=== PATIENT | female | born 1950 ===

== ENCOUNTER → 2022-02-28 08:00 | Outpatient (CLI) | payer OTHER ==
[~2022-02-28 08:00] MED LIST: LIPITOR PO; VASOTEC PO
== END | disposition home or self-care (01) ==
LOC: LAB 08:00 → ADM 09:15 → CIR.AMB 03-05 08:30 → EDSTATUS 03-05 09:15 → CIR.AMB 03-05 09:15
PROVIDERS: ATTEND Obstetrics & Gynecology Gynecology
DX: Z20.828 Contact with and (suspected) exposure to other viral communicable diseases (principal)

== ENCOUNTER 2022-04-30 09:57 | Outpatient (CLI) | payer OTHER | END 2022-04-30 15:32 | disposition home or self-care (01) | LOC: EKG 09:57 | PROVIDERS: ATTEND Obstetrics & Gynecology Gynecology | DX: I10 Essential (primary) hypertension (principal) ==

== ENCOUNTER 2022-05-07 05:13 | Day surgery (SDC) | payer OTHER ==
[2022-05-07] MEDS ORDERED: MACROBID 100 M100 MG PO (09:53)
== END 2022-05-07 12:15 | disposition home or self-care (01) ==
LOC: CIR.AMB 05:13
PROVIDERS: ATTEND Obstetrics & Gynecology Gynecology
DX: N81.11 Cystocele, midline (principal); Z20.822 Contact with and (suspected) exposure to COVID-19; Z91.013 Allergy to seafood; Z88.2 Allergy status to sulfonamides; I10 Essential (primary) hypertension; E78.5 Hyperlipidemia, unspecified; Z71.6 Tobacco abuse counseling; F17.210 Nicotine dependence, cigarettes, uncomplicated

== ENCOUNTER 2022-05-08 18:49 | Emergency (ER) | payer OTHER ==
[~2022-05-08] VITALS: Ht 170.2 cm; Wt 77.1 kg
[~2022-05-08 18:49] MED LIST changes: +MACROBID 100 M100 MG PO
== END 2022-05-08 22:20 | disposition home or self-care (01) ==
LOC: ER 18:49
DX: T83.9XXA Unspecified complication of genitourinary prosthetic device, implant and graft, initial encounter (principal); Z88.2 Allergy status to sulfonamides; Z88.6 Allergy status to analgesic agent; Z91.013 Allergy to seafood